=== PATIENT | male | born 1945 | race African-American/Black ===

== ENCOUNTER 2019-08-18 22:07 | Emergency (ER) | payer MEDICARE, OTHER ==
[~2019-08-18] VITALS: Ht 170.2 cm; Wt 75.0 kg
[2019-08-18] MEDS ORDERED: LIDOCAINE HCL 1% 20ML VIAL (Pyxis) INJ INFIL ONE (23:00)
[2019-08-19 00:25] VITALS: BP 137/78
== END 2019-08-19 00:28 | disposition home or self-care (01) ==
LOC: ER 22:07
DX: S01.01XA Laceration without foreign body of scalp, initial encounter (principal); W22.8XXA Striking against or struck by other objects, initial encounter; Y93.89 Activity, other specified; Y92.89 Other specified places as the place of occurrence of the external cause; Y99.8 Other external cause status
CPT/HCPCS: 12002; 70450; 99284; J3490

== ENCOUNTER 2024-09-16 19:49 | Emergency (ER) | payer MEDICARE, OTHER ==
[~2024-09-16] VITALS: Ht 170.2 cm; Wt 73.0 kg
[2024-09-16 20:22] VITALS: O2SAT 98
[2024-09-16 23:25] VITALS: BP 132/91; PULSE 78; RESP 16; TEMP 36.6; O2SAT 96
== END 2024-09-16 23:25 | disposition home or self-care (01) ==
LOC: ER 19:49
DX: M25.511 Pain in right shoulder (principal); M10.9 Gout, unspecified; M25.521 Pain in right elbow; M25.561 Pain in right knee
CPT/HCPCS: 73030; 73080; 73560; 99283